=== PATIENT | male | born 2000 | race African-American/Black ===

== ENCOUNTER 2023-08-25 05:06 | Emergency (ER) | payer OTHER ==
[2023-08-25 05:15] VITALS: BP 110/71; PULSE 62; RESP 20; TEMP 98; BMI 36.0
[2023-08-25] MEDS ORDERED: predniSONE 20 MG TABLET (UD) PO ONE (05:21)
[2023-08-25] MEDS ORDERED: ALBUTEROL SO4 2.5/IPRATROPIUM 0.5 INH SOL 3 ML VIAL.NEB. NEB ONE (05:28)
[2023-08-25] MEDS ORDERED: predniSONE 20 MG TABLET (UD) ONE (05:28)
[2023-08-25] MEDS: ALBUTEROL SO4 2.5/IPRATROPIUM 0.5 INH SOL 3 ML VIAL.NEB. NEB SCH ×2 (05:36→05:55)
== END 2023-08-25 06:08 | disposition home or self-care (01) ==
LOC: JER 05:06
PROC: 3E0F7GC Introduction of Other Therapeutic Substance into Respiratory Tract, Via Natural or Artificial Opening (ICD-10-PCS; principal; 2023-08-25)
DX: R06.02 Shortness of breath (principal); J45.909 Unspecified asthma, uncomplicated; Z20.822 Contact with and (suspected) exposure to COVID-19
CPT/HCPCS: 0241U-QW; 99283-25

== ENCOUNTER 2024-10-08 14:53 | Emergency (ER) | payer OTHER ==
[2024-10-08 15:05] VITALS: BP 121/60; PULSE 114; RESP 20; TEMP 100.9; BMI 34.2
[2024-10-08] MEDS ORDERED: ALBUTEROL SO4 2.5/IPRATROPIUM 0.5 INH SOL 3 ML VIAL.NEB. NEB ONE (16:52)
[2024-10-08] MEDS ORDERED: ACETAMINOPHEN 325 MG TABLET (FP) ONE (16:52)
[2024-10-08] MEDS: ALBUTEROL SO4 2.5/IPRATROPIUM 0.5 INH SOL 3 ML VIAL.NEB. NEB ONE (17:03)
[2024-10-08] MEDS: ACETAMINOPHEN 325 MG TABLET (FP) PO ONE (17:03)
[2024-10-08] MEDS ORDERED: ALBUTEROL SO4 HFA INHALER IH ONE (17:51)
[2024-10-08] MEDS: ALBUTEROL SO4 HFA INHALER IH PRN (17:51)
== END 2024-10-08 17:55 | disposition home or self-care (01) ==
LOC: JER 14:53
PROC: 3E0F7GC Introduction of Other Therapeutic Substance into Respiratory Tract, Via Natural or Artificial Opening (ICD-10-PCS; principal; 2024-10-08)
DX: J10.1 Influenza due to other identified influenza virus with other respiratory manifestations (principal); J45.909 Unspecified asthma, uncomplicated; R06.02 Shortness of breath; R07.9 Chest pain, unspecified; R05.9 Cough, unspecified; Z20.822 Contact with and (suspected) exposure to COVID-19
CPT/HCPCS: 0241U-QW; 93005; 93010; 99284-25